=== PATIENT | male | born 1980 | race Caucasian/White ===

== ENCOUNTER 2019-04-14 18:54 | Emergency (ER) | payer OTHER, SELFPAY ==
[2019-04-14 19:32] VITALS: BP 133/84; PULSE 64; RESP 16; TEMP 36.7; O2SAT 100
--- NOTE | 2019-04-14 19:43 | ED.GENADULT ---
HPI - General Adult General Chief complaint: Upper Respiratory Infection Stated complaint: Flu like symptoms Time Seen by Provider: 04/14/19 19:52 Source: patient Mode of arrival: ambulatory Limitations: no limitations History of Present Illness HPI narrative: 38-year-old male patient presents to the [facility] with complaints of cold and flu symptoms that started yesterday. Patient states he has had severe body aches, pains, fevers and just overall not feeling well. Patient states he has had a lot of nasal congestion and drainage and a sore throat. Patient denies getting a flu shot this year. Patient denies chest pain, shortness breath, abdominal pain, nausea, vomiting or diarrhea. Related Data Allergies Allergy/AdvReac Type Severity Reaction Status Date / Time No Known Allergies Allergy Verified 04/14/19 19:39 Review of Systems Review of Systems: Narrative: CONSTITUTIONAL: Positive fever, body aches, chills, and sweats. EYES: Denies visual changes, redness, or discharge. ENT: Positive rhinorrhea, congestion, sore throat, denies otalgia. CARDIOVASCULAR: Denies chest pain, palpitations, or edema. RESPIRATORY: Denies cough or dyspnea. GASTROINTESTINAL: Denies abdominal pain, nausea, vomiting, or diarrhea. GENITOURINARY: Denies dysuria or hematuria. SKIN: Denies rash or itching. MUSCULOSKELETAL: Denies back pain, joint pain, or myalgia. NEUROLOGIC: Denies headache, numbness, or weakness. PSYCHIATRIC: Denies anxiety or depression. PMFSH Comments At the time of my signature I agree with nursing past medical history, surgical, social, and family history. There is no relevant family history pertinent to the presenting complaint. Exam Narrative: Exam Narrative: GENERAL: ill-appearing, well-nourished, and in no acute distress. HEAD: Normocephalic, atraumatic. No tenderness noted to frontal or maxillary sinuses on palpation EYES: PERRLA and EOMI. ENT: Nares with erythema and edema noted bilaterally with the right nare swollen shut, no rhinorrhea or epistaxis. Mucous membranes moist. Posterior pharynx with slight erythema but no tonsil enlargement no exudates or lesions present. Bilateral TMs are clear no erythema or foreign bodies in the canal. NECK: Supple. No lymphadenopathy CHEST: Clear to auscultation. No respiratory distress. HEART: Regular rate and rhythm. No murmur heard. Normal peripheral pulses. ABDOMEN: Soft, nontender, nondistended, normal active bowel sounds. EXTREMITIES: Normal range of motion. No edema. SKIN: Warm, dry, no rash. NEURO: No focal deficits. Alert and oriented x3. Course Vital Signs Vital signs: Vital Signs Temperature 36.7 C 04/14/19 19:32 Pulse Rate 64 04/14/19 19:32 Respiratory Rate 16 04/14/19 19:32 Blood Pressure 133/84 04/14/19 19:32 Pulse Oximetry 100 04/14/19 19:32 Temperature 36.7 C 04/14/19 19:32 Pulse Rate 64 04/14/19 19:32 Respiratory Rate 16 04/14/19 19:32 Blood Pressure 133/84 04/14/19 19:32 Pulse Oximetry 100 04/14/19 19:32 Vital signs reviewed. Medical Decision Making Differential Diagnosis Differential Diagnosis: Differential diagnosis: Allergic rhinitis, chronic sinusitis, tonsillitis, acute sinusitis, infectious mononucleosis, seasonal influenza, pertussis, diphtheria, meningococcal disease, viral syndrome, viral bronchitis, RSV. Discussed with patient that his influenza test today at the bedside was negative however based on how he presents in his complaints I do believe he most likely does have the flu. Discussed with patient plan to treat him as an influenza today and discharge him home with antiviral since he is within the timeframe.. Discussed with patient the pros and cons of antivirals as well as the side effects. Patient has not agreed to start antivirals. Discussed with patient otherwise symptoms are treated with [id number] Tylenol, ibuprofen, rest and increase in his fluids. Patient verbalized understanding denies any other
== END 2019-04-14 20:03 | disposition home or self-care (01) ==
PROVIDERS: Emergency Provider Nurse Practitioner Family; PCP Emergency Medicine
DX: J06.9 Acute upper respiratory infection, unspecified (principal); R05 Cough
CPT/HCPCS: 87804; 99203; G0463

== ENCOUNTER 2021-07-15 19:35 | Emergency (ER) | payer OTHER, SELFPAY ==
--- NOTE | 2021-07-15 19:37 | ED.URI ---
HPI - URI/Sore Throat General Chief Complaint: Upper Respiratory Infection Stated Complaint: Body Aches/Sore Throat Time Seen by Provider: 07/15/21 19:37 Source: patient and RN notes reviewed History of Present Illness HPI Narrative: Patient is a 41-year-old male who presents the urgent care with complaints of body aches, sore throat, chills. Patient states that started Thursday afternoon and he did have a negative COVID test this morning. Patient states that someone at [facility] had a son who is positive for COVID otherwise denies of any exposures. Patient denies of any nausea or vomiting. States he has been taking Tylenol for his symptoms. No other acute complaints. No acute distress noted. Patient aware of the plan of care. Some parts of this dictation were generated by voice recognition software and may contain typographical and/or grammatical inaccuracies. Related Data Home Medications Medication Instructions Recorded Confirmed lisdexamfetamine [Vyvanse] 30 mg PO DAILY 07/15/21 07/15/21 Allergies Allergy/AdvReac Type Severity Reaction Status Date / Time No Known Allergies Allergy Verified 04/14/19 19:39 Review of Systems Review of Systems: CONSTITUTIONAL: Reports of fever, chills EYES: Denies visual changes, redness, or discharge. ENT: Denies rhinorrhea, congestion, otalgia. Reports of sore throat CARDIOVASCULAR: Denies chest pain, palpitations, or edema. RESPIRATORY: Denies cough or dyspnea. GASTROINTESTINAL: Denies abdominal pain, nausea, vomiting, or diarrhea. GENITOURINARY: Denies dysuria or hematuria. SKIN: Denies rash or itching. MUSCULOSKELETAL: Denies back pain, joint pain. Reports body aches NEUROLOGIC: Denies headache, numbness, or weakness. All other systems reviewed are negative, except as documented in HPI. PMFSH Comments At the time of my signature, I reviewed and agree with the nursing past medical, surgical, social, and family history. There is no relevant family history pertinent to the patient complaint. Exam Narrative: GENERAL: This is a well-nourished, well-developed patient. Appears slightly fatigued HEAD: normocephalic, atraumatic. EYES: PERRL. Sclera clear/white. Vision is grossly intact. EARS: External ears normal, auditory canals clear and without drainage, TMs normal without perforation. Hearing grossly intact. NOSE: External nose normal with no obvious nasal discharge, nares without redness, no rhinorrhea. THROAT: Mucous membranes moist. Moderate erythema noted posterior oropharynx with mild to moderate bilateral tonsillar edema with bilateral exudate and moderate postnasal drainage NECK: Neck supple, non-tender without lymphadenopathy, masses or thyromegaly. CARDIOVASCULAR: Regular rate and rhythm without murmurs, gallops, or rubs. RESPIRATORY: Clear to auscultation. Breath sounds equal bilaterally. No wheezes, rales, or rhonchi. SKIN: warm, intact with no suspicious lesions or rash, good texture and turgor. NEURO: awake, alert, and oriented to person, place and time. There were no obvious focal neurologic abnormalities. EXTREMITIES: No clubbing, cyanosis, or edema. Course Course Level of Care: Express Care Visit Vital Signs Vital signs: Vital Signs Temperature 98.1 F 07/15/21 19:40 Respiratory Rate 20 07/15/21 19:40 Blood Pressure 122/77 07/15/21 19:40 Pulse Oximetry 100 07/15/21 19:40 Temperature 98.1 F 07/15/21 19:40 Respiratory Rate 20 07/15/21 19:40 Blood Pressure 122/77 07/15/21 19:40 Pulse Oximetry 100 07/15/21 19:40 Reviewed MDM - URI/Sore Throat MDM Narrative Medical decision making narrative: Reviewed lab results with the patient. He is aware that flu swab was negative. Strep swab was also negative. Educated him on culture we will call within 72 hours if culture is positive and antibiotics are necessary. Advised the patient to retest himself with a rapid COVID test after 24 to 36 hours. Complete the steroid regimen to treat the t
[2021-07-15 19:40] VITALS: BP 122/77; RESP 20; TEMP 36.7; O2SAT 100
== END 2021-07-15 20:13 | disposition home or self-care (01) ==
PROVIDERS: Emergency Provider Nurse Practitioner Family; PCP Emergency Medicine
DX: J03.90 Acute tonsillitis, unspecified (principal)
CPT/HCPCS: 87081; 87804; 87880; 99213; G0463